=== PATIENT | female | born 1980 | race African-American/Black ===

== ENCOUNTER 2021-08-12 19:42 | Emergency (ER) | payer OTHER ==
[~2021-08-12] VITALS: Ht 170.2 cm; Wt 134.3 kg
[2021-08-12] MEDS ORDERED: ZANAFLEX4 MG PO (21:41)
[2021-08-12] MEDS ORDERED: MOBIC7.5 MG PO (21:41)
[2021-08-12 22:30] VITALS: BP 167/94
== END 2021-08-12 22:31 | disposition home or self-care (01) ==
LOC: ER 19:42
DX: S16.1XXA Strain of muscle, fascia and tendon at neck level, initial encounter (principal); R51.9 Headache, unspecified; M25.512 Pain in left shoulder; M54.50 Low back pain, unspecified; E11.9 Type 2 diabetes mellitus without complications; Z98.890 Other specified postprocedural states; Z87.442 Personal history of urinary calculi; V49.59XA Passenger injured in collision with other motor vehicles in traffic accident, initial encounter; Y93.89 Activity, other specified; Y92.413 State road as the place of occurrence of the external cause; Y99.9 Unspecified external cause status